=== PATIENT | male | born 1945 | race American Indian/Alaskan Native ===

== ENCOUNTER 2022-03-01 22:34 | Emergency (ER) | payer MEDICARE ==
[2022-03-02] MEDS ORDERED: SODIUM CHLORIDE 0.9% 1000 ML 1,000 ML IV ONE (01:02)
--- NOTE | 2022-03-02 01:05 | Emergency Department Report ---
HPI - General Chief Complaint: Dental/Oral PUI?: No Time Seen by Provider: 03/02/22 01:01 - HPI HPI: 76-year-old male with multiple medical comorbidities including type 2 diabetes, hypertension, multiple myeloma in remission, GERD, neutropenia, sent in from [facility] for osteomyelitis of right mandible as well as dental abscess. Nursing documentation reviewed. Per nursing report, she received report from [facility] stating that the patient had undergone CT imaging of his mandible given his complaint of right jaw pain status post undergoing dental extraction 4 days ago. The patient was found to have an abscess and osteomyelitis of his right jaw. He was given vancomycin Zosyn and clindamycin. No beds were available at any of their other receiving facilities due to lack of available beds. 911 was telephoned by [facility] and they brought the patient to the nearest hospital, Pt denies any complaints at this time. HE reports having undergone extraction of 4 teeth in his left upper jaw but states that he has no pain at that site. He states for the past 3 weeks he has been having persistent pain and swelling on the right side of his face. No difficulty breathing no shortness of breath no n librado stiffness. Pain 0 out of 10. ED Past Medical Hx - Past Medical History Previous Medical History?: Yes Hx Hypertension: Yes Hx Diabetes: Yes Hx GERD: Yes Hx Renal Disease: Yes Hx of Cancer: Yes (multiple myeloma) - Surgical History Past Surgical History?: Yes - Social History Smoking Status: Former Smoker Substance Use Type: None ED Review of Systems ROS: Stated complaint: MOUTH PAIN Other details as noted in HPI Physical Exam - Physical Exam Vital Signs: Vital Signs 03/01/22 22:44 Temperature 97.7 F Pulse Rate 68 Respiratory 18 Rate Blood Pressure 108/60 O2 Sat by Pulse 99 Oximetry General: Gen: pt is well appearing, no acute distress HEENT: Normocephalic atraumatic pupils equally round and reactive to light extraocular muscles intact sclera anicteric Neck: Full range of motion, no midline spinal tenderness palpation, no JVD, no carotid bruits, no nuchal rigidity CVS: S1-S2 regular rate and rhythm with no gallops rubs or murmurs, chest wall nontender Pulmonary: Clear to auscultation bilaterally, no wheezes rales or rhonchi Abdomen: Soft nondistended nontender no guarding or rebound tenderness, no palpable deformities or step-offs, normal active bowel sounds, no hepatosplenomegaly, no pulsatile masses : Deferred Extremities: No cyanosis no clubbing no edema, intact distal peripheral pulses, Integumentary: Skin normal, no petechia no purpura no abscess no lacerations no evidence of trauma no evidence of infection Neuro: Patient is awake alert and oriented to person place time situation, mentating well, cranial nerves II through XII intact, no focal neurodeficits, sensation grossly tact Psych: Calm cooperative, mood affect normal ED Course Vital Signs 03/01/22 22:44 Temperature 97.7 F Pulse Rate 68 Respiratory 18 Rate Blood Pressure 108/60 O2 Sat by Pulse 99 Oximetry - Consultations Consultation #1: 03/02/22 12:51am Pt is a [facility] patient. I telephoned [facility] @ [phone]. I requested to speak with the [facility] physician concerning the patient's need for transfer as the patient will either need ENT or OMFS in the setting of right mandibular osteomyelitis and this service is not available at [facility]. Return call will be provided for application support technician 1:12 AM: Returned call received from Dr. James, [facility] physician. Case reviewed with him. He will telephone different excepting facilities and will return my call to determine if and where the patient may be transferred to. 1:54am; Return call received from Dr. James. The pt has been accepted for transfer and admission by Dr. Slaughter, hospitalist, at [facility] in [employer] ED Medical Decision Making - Lab Data Result diagrams: 03/02/22 01:49 03/02/22 01:49 - Radiology Data Radiology results: report reviewed - Medical Decision Making 76-year-old male with multiple medical comorbidities sent from [facility] for right mandible osteomyelitis and dental abscess. Vital signs stable. Labs reviewed. Harjit telephoned. Per [facility]'s report, patient has been accepted for transfer to [facility] by admitting hospitalist, Dr. Slaughter. Critical care attestation.: If time is entered above; I have spent that time in minutes in the direct care of this critically ill patient, excluding procedure time. ED Disposition Clinical Impression: Osteomyelitis Disposition: 02 SHORT TERM [facility]OSPITAL Is pt being admited?: No Does the pt Need Aspirin: No Condition: Stable Referrals: CORKY SAAVEDRA [Other] - 3-5 Days
[2022-03-02 02:16] LABS: Hematocrit 27.5 % (35.5-45.6); Hemoglobin 8.6 gm/dl (11.8-15.2); Mean Corpuscular HGB Conc 31 % (32-34); Mean Corpuscular Volume 88 fl (84-94); Platelet Count 300 K/mm3 (140-440); Red Blood Count 3.13 M/mm3 (3.65-5.03); Red Cell Distribution Width 16.9 % (13.2-15.2)
[2022-03-02 02:24] VITALS: BP 110/62
[2022-03-02 02:28] LABS: Albumin 2.5 g/dL (3.9-5); Calcium 7.9 mg/dL (8.4-10.2)
[2022-03-02 04:18] LABS: Basophils % (Manual) 0 % (0.0-1.8); Total Cells Counted 100
[2022-03-02 04:19] LABS: Platelet Estimate Consistent w Auto
== END 2022-03-02 04:20 | disposition short-term general hospital (02) ==
LOC: ED 22:34
DX: M86.9 Osteomyelitis, unspecified (principal); I10 Essential (primary) hypertension; E11.9 Type 2 diabetes mellitus without complications
CPT/HCPCS: 36415; 80053; 82140; 85007; 85025; 87040; 96360; 96361; 99285; J7030